=== PATIENT | female | born 1995 | race Caucasian/White ===

== ENCOUNTER 2023-02-27 06:12 | Day surgery (SDC) | payer SELFPAY ==
[2023-02-20 13:17] VITALS: BMI 22.6
[2023-02-27] MEDS ORDERED: ROCURONIUM BROMIDE 50 MG/5 ML SYRINGE ONE (07:15)
[2023-02-27] MEDS ORDERED: PROPOFOL 40 ML ONE (07:15)
[2023-02-27] MEDS ORDERED: MIDAZOLAM HCL 2 MG/2 ML SINGLE DOSE VIAL ONE (07:15)
[2023-02-27] MEDS ORDERED: LIDOCAINE 1%-EPI 1:100,000 30 ML MDV IJ ONE (07:18)
[2023-02-27] MEDS ORDERED: ceFAZolin SODIUM 1 GM VIAL ONE ×3 (07:18→09:42)
[2023-02-27] MEDS ORDERED: GENTAMICIN SO4 80 MG/2 ML VIAL ONE (07:18)
[2023-02-27] MEDS ORDERED: BUPIVACAINE HCL/PF 2.5 MG/ML - 30 ML VIAL IJ ONE (07:19)
[2023-02-27] MEDS ORDERED: VANCOMYCIN 1,000 MG VIAL (RESTRICTED TO ID ONLY) ONE (07:20)
[2023-02-27] MEDS ORDERED: BACITRACIN ZINC 15 GM TUBE TOPICAL OINTMENT ONE (07:20)
[2023-02-27] MEDS ORDERED: DEXAMETHASONE SOD PHOSPHATE 4 MG/1 ML VIAL ONE (09:42)
[2023-02-27] MEDS ORDERED: KETOROLAC TROMETHAMINE 30 MG/1 ML VIAL ONE (09:42)
[2023-02-27] MEDS ORDERED: ONDANSETRON 4 MG/2 ML VIAL ONE ×2 (09:42→13:26)
[2023-02-27] MEDS ORDERED: HYDROmorphone HCL/PF 1 MG/ML VIAL ONE (11:35)
[2023-02-27] MEDS ORDERED: ONDANSETRON 4 MG/2 ML VIAL IVPUSH PRN (12:34)
[2023-02-27] MEDS ORDERED: ACETAMINOPHEN 1000 MG/100 ML BAG IVPB ONE (12:34)
[2023-02-27] MEDS ORDERED: oxyCODONE HCL 5 MG TABLET PO PRN (12:34)
[2023-02-27] MEDS ORDERED: LACTATED RINGERS SOLUTION 1,000 ML IV SCH (12:45)
[2023-02-27] MEDS ORDERED: ACETAMINOPHEN INJECTION 100 ML IVPB ONE (12:57)
[2023-02-27 13:24] VITALS: PULSE 70; RESP 18; TEMP 97.4
[2023-02-27] MEDS ORDERED: PROMETHAZINE HCL 25 MG/1 ML VIAL IVPB PRN (13:34)
[2023-02-27 14:31] VITALS: BP 104/62
== END 2023-02-27 14:32 | disposition home or self-care (01) ==
LOC: FASU 06:12
PROVIDERS: ATTEND Surgery
PROC: 0H0V0JZ Alteration of Bilateral Breast with Synthetic Substitute, Open Approach (ICD-10-PCS; principal; 2023-02-27 09:36)
DX: Z41.1 Encounter for cosmetic surgery (principal); N64.82 Hypoplasia of breast
CPT/HCPCS: 19325; L8600; 81025; 94760